=== PATIENT | male | born 1955 | race Caucasian/White ===

== ENCOUNTER 2023-12-28 20:42 | Emergency (ER) | payer OTHER ==
[~2023-12-28] VITALS: Ht 182.9 cm; Wt 93.9 kg
[2023-12-28 21:08] LABS: BASOPHILS # (AUTO) 0.1 (0.0-0.1); BASOPHILS % 0.7 % (0.0-1.0); EOSINOPHILS % 0.1 % (0.0-6.0); HEMATOCRIT 39.5 % (38.2-49.6); HEMOGLOBIN 13.9 g/dL (14.0-18.0); LYMPHOCYTES % 24.7 % (18.0-39.1); MEAN CORPUSCULAR HEMOGLOBIN 32.9 pg (28-32); MEAN CORPUSCULAR HGB CONC 35.2 g/dL (31-35); MEAN CORPUSCULAR VOLUME 93.4 fL (81-99); MONOCYTES # (AUTO) 0.9 (0.2-0.8); MONOCYTES % 11.2 % (4.4-11.3); NEUTROPHILS # (AUTO) 5.1 (2.1-6.9); NEUTROPHILS % 63.1 % (38.7-80.0); PLATELET COUNT 145 x10e3/uL (140-360); RED BLOOD COUNT 4.23 x10e6/uL (4.3-5.7); RED CELL DISTRIBUTION WIDTH 12.5 % (11.7-14.4); WHITE BLOOD COUNT 8.02 x10e3/uL (4.8-10.8)
[2023-12-28 21:19] LABS: BILIRUBIN,URINE NEGATIVE (NEGATIVE); CLARITY,URINE SL CLOUDY (CLEAR); COLOR,URINE YELLOW (YELLOW); GLUCOSE, URINE NEGATIVE (NEGATIVE); KETONES,URINE NEGATIVE (NEGATIVE); LEUKOCYTE ESTERASE ,URINE NEGATIVE (NEGATIVE); NITRITE,URINE NEGATIVE (NEGATIVE); PH,URINE 5.5 (5 - 7); PROTEIN,URINE DIPSTICK NEGATIVE (NEGATIVE); URINE UROBILINOGEN 1 mg/dL (0.2 - 1)
[2023-12-28] MEDS: ONDANSETRON HCL INJ 2MG/ML 2ML 2 MG/ML VIAL IV STA (21:22)
[2023-12-28] MEDS: SODIUM CHLORIDE 0.9% 1000ML 1,000 ML IV ONE (21:23)
[2023-12-28] MEDS: ACETAMINOPHEN 325 MG TAB PO ONE (21:23)
[2023-12-28 21:28] LABS: ALBUMIN 3.4 g/dL (3.5-5.0); ANION GAP 11.6 mmol/L (8-16); BILIRUBIN,TOTAL 1.6 mg/dL (0.2-1.2); CALCIUM 8.5 mg/dL (8.4-10.2); CREATININE, SERUM 1.06 mg/dL (0.72-1.25); POTASSIUM 3.6 mmol/L (3.5-5.1); TOTAL PROTEIN 6.9 g/dL (6.5-8.1)
[2023-12-28 21:29] LABS: BACTERIA,URINE MODERATE /HPF
[2023-12-28 21:30] LABS: MUCUS,URINE MANY (RARE)
[2023-12-28] MEDS ORDERED: IOPAMIDOL 370 MG/ML 100 ML INFUS..BTL INJ ONE (21:46)
[2023-12-28 22:30] VITALS: PULSE 56; RESP 16; TEMP 98.5
[2023-12-28 23:40] LABS: INFLUENZAE A&B ANTIGEN (RAPID) NEGATIVE (NEGATIVE); RESPIRATORY SYNC. VIRUS NEGATIVE (NEGATIVE)
[2023-12-28] MEDS ORDERED: ONDANSETRON ODT4 MG SL (23:40)
[2023-12-29 01:22] VITALS: BP 131/70; PULSE 76; RESP 18; TEMP 98.2; O2SAT 99
== END 2023-12-29 00:30 | disposition home or self-care (01) ==
LOC: ER 20:50
DX: R50.9 Fever, unspecified (principal); B34.9 Viral infection, unspecified; R11.0 Nausea; R10.30 Lower abdominal pain, unspecified; I10 Essential (primary) hypertension; E78.5 Hyperlipidemia, unspecified; Z87.19 Personal history of other diseases of the digestive system; Z11.52 Encounter for screening for COVID-19
CPT/HCPCS: 36415; 71045; 74177; 80053; 81001; 83605; 85025; 87040; 87086; 87400; 87420; 99284; J2405; J2543; J7030; Q9967; U0002